=== PATIENT | male | born 1960 | race Caucasian/White ===

== ENCOUNTER → 2018-01-19 | Outpatient (CLI) | payer OTHER ==
[~2018-01-19] MED LIST: PERCOCET 5/3251 TAB PO
== END | disposition home or self-care (01) ==
LOC: NUCLEAR 13:55
DX: I20.0 Unstable angina (principal); I25.10 Atherosclerotic heart disease of native coronary artery without angina pectoris; E78.2 Mixed hyperlipidemia
CPT/HCPCS: 78452; 93017; A9500

== ENCOUNTER 2025-05-21 12:45 | Inpatient (IN) | payer OTHER ==
[~2025-05-21] VITALS: Ht 177.8 cm; Wt 86.2 kg
[2025-05-21 12:22] LABS: URINE APPEARANCE Clear; URINE BILIRRUBIN Negative (NEGATIVE); URINE BLOOD Small; URINE COLOR Yellow; URINE GLUCOSE Negative (NEGATIVE); URINE KETONE Negative (NEGATIVE); URINE LEUKOCYTE Negative; URINE NITRATE Negative; URINE PROTEIN Negative (NEGATIVE); URINE UROBILINOGEN 0.2 E.U./dl
[2025-05-21 12:27] LABS: BASO % 0.5 % (0.1-1.2); EOS # 0.10 (0.04-0.54); EOS % 1.7 % (0.7-7.0); LYMPH # 1.56 (1.18-3.74); LYMPH % 26.0 % (19.3-53.1); MEAN PLATELET VOLUME 11.10 fl (9.4-12.4); MONO # 0.57 (0.24-0.82); MONO % 9.5 % (4.7-12.5); NEUT # 3.73 (1.56-6.13); NEUT % 62.1 % (34.0-71.1); RED CELL DISTRIBUTION WIDTH 12.0 % (11.6-14.4)
[2025-05-21 12:42] LABS: INR 1.02
[2025-05-21 12:53] VITALS: BP 126/86
[2025-05-21] MEDS ORDERED: COZAAR25 MG PO (13:00)
[2025-05-21 13:07] LABS: URINE BACTERIA SOME; URINE EPITHELIAL CELLS 0-4 /HPF; URINE RBC 0-3 /HPF; URINE WBC 0-2 /hpf
[2025-05-21 13:13] LABS: ALT/SGPT 29.0 U/L (12-78); AST/SGOT 15.0 U/L (15-37); BILIRUBIN TOTAL 0.57 mg/dL (0.3-1.2); BUN CREA RATIO 21.0 (7.0-25.0); CREATININE SERUM 0.86 mg/dL (0.70-1.30); GFR 89.53; GLOBULINA 3.2 G/DL (2.4-3.5); GLUCOSE FASTING 93.0 mg/dL (65-100); OSMOLALITY SERUM 288.0 MOSM/KG (275-295)
[2025-05-21] MEDS ORDERED: LOSARTAN-HCTZ1 EAC1 PO (14:10)
[2025-05-21] MEDS ORDERED: TAMS0.4C PO (14:11)
[2025-05-28] MEDS ORDERED: CEFTRIAXONE SODIUM 2,000 MG VIAL IV ONE (10:15)
[2025-05-28] MEDS ORDERED: METRONIDAZOLE/SODIUM CHLORIDE 500 MG/100 ML PIGGYBACK IV ONE ×2 (10:30)
[2025-05-28] MEDS ORDERED: MORPHINE SULFATE 4 MG/ML VIAL IV ONE ×2 (12:00→13:00)
[2025-05-28] MEDS ORDERED: SUGAMMADEX SODIUM 200 MG/2 ML VIAL IV ONE (12:00)
[2025-05-28] MEDS ORDERED: ONDANSETRON HCL 2 MG/ML VIAL IV ONE (12:40)
[2025-05-28] MEDS ORDERED: OxyCODONE HCL 5 MG TABLET (ROXICODONE) PO PRN (12:45)
[2025-05-28] MEDS ORDERED: 0.9 % SODIUM CHLORIDE 1,000 ML IV SCH (12:45)
[2025-05-28] MEDS ORDERED: MORPHINE SULFATE 4 MG/ML CARTRIDGE IV PRN (12:45)
[2025-05-28] MEDS ORDERED: ONDANSETRON HCL 2 MG/ML VIAL IV PRN (12:45)
[2025-05-28] MEDS ORDERED: HYOSCYAMINE SULFATE 0.125 MG TAB.SUBL SL SCH (13:00)
[2025-05-28 13:35] LABS: BASO % 0.1 % (0.1-1.2); EOS # 0.02 (0.04-0.54); EOS % 0.1 % (0.7-7.0); LYMPH # 1.55 (1.18-3.74); LYMPH % 8.7 % (19.3-53.1); MEAN PLATELET VOLUME 11.40 fl (9.4-12.4); MONO # 0.79 (0.24-0.82); MONO % 4.5 % (4.7-12.5); NEUT # 15.29 (1.56-6.13); NEUT % 86.2 % (34.0-71.1); RED CELL DISTRIBUTION WIDTH 12.1 % (11.6-14.4)
[2025-05-28] MEDS ORDERED: ACETAMINOPHEN 500 MG GEL..CAP PO SCH (14:00)
[2025-05-28] MEDS ORDERED: POLYETHYLENE GLYCOL 3350 17 GM BLIST.PACK PO SCH (17:00)
[2025-05-28] MEDS ORDERED: GABAPENTIN 300 MG CAPSULE PO SCH (17:00)
[2025-05-28] MEDS ORDERED: METOCLOPRAMIDE HCL 5 MG/ML VIAL IV SCH (17:00)
[2025-05-28 17:50] VITALS: BP 137/81; O2SAT 95
[2025-05-28] MEDS ORDERED: CELECOXIB 200 MG CAPSULE PO SCH (21:00)
[2025-05-28] MEDS ORDERED: FAMOTIDINE/PF 20 MG/2 ML VIAL IV PUSH SCH (21:00)
[2025-05-29 01:33] VITALS: BP 136/78; O2SAT 100
[2025-05-29 08:00] VITALS: BP 119/74; O2SAT 96
[2025-05-29 08:23] LABS: BASO % 0.2 % (0.1-1.2); EOS # 0.05 (0.04-0.54); EOS % 0.4 % (0.7-7.0); LYMPH # 1.84 (1.18-3.74); LYMPH % 15.2 % (19.3-53.1); MEAN PLATELET VOLUME 11.90 fl (9.4-12.4); MONO # 1.32 (0.24-0.82); MONO % 10.9 % (4.7-12.5); NEUT # 8.79 (1.56-6.13); NEUT % 73.0 % (34.0-71.1); RED CELL DISTRIBUTION WIDTH 11.9 % (11.6-14.4)
[2025-05-29] MEDS ORDERED: LACTOBACILLUS ACIDOPHILUS 1 CAP CAP PO SCH (09:00)
[2025-05-29 09:08] LABS: BUN CREA RATIO 13.0 (7.0-25.0); CREATININE SERUM 0.78 mg/dL (0.70-1.30); GFR 100.21; GLUCOSE FASTING 103.0 mg/dL (65-100); OSMOLALITY SERUM 284.0 MOSM/KG (275-295)
[2025-05-29] MEDS ORDERED: ENOXAPARIN SODIUM 40 MG/0.4 ML SYRINGE SUBCUTANEO SCH (17:00)
[2025-05-29 17:27] VITALS: BP 101/64; O2SAT 98
[2025-05-30 02:27] VITALS: BP 111/70; O2SAT 98
[2025-05-30 08:00] VITALS: BP 123/79; O2SAT 97
[2025-05-30] MEDS ORDERED: ENOXAPARIN SODIUM 40 MG/0.4 ML SYRINGE SUBCUTANEO SCH (09:00)
[2025-05-30] MEDS ORDERED: METOCLOPRAMIDE HCL 10 MG TABLET PO SCH (17:00)
[2025-05-30] MEDS ORDERED: LEVSIN/SL0.125 MG SL (17:11)
[2025-05-30] MEDS ORDERED: CELECOXIB200 MG PO (17:11)
[2025-05-30] MEDS ORDERED: INTESTINEX680 M1 PO (17:11)
== END 2025-05-30 17:47 | DRG 330 ==
LOC: O/R 05-28 06:25 → SURH 05-28 07:00 → O/R 05-28 09:47 → SURH 05-28 12:27
PROVIDERS: ADMIT Surgery; ATTEND Surgery
PROC: 0DBP4ZZ Excision of Rectum, Percutaneous Endoscopic Approach (ICD-10-PCS; 2025-05-28)
PROC: 0DNW4ZZ Release Peritoneum, Percutaneous Endoscopic Approach (ICD-10-PCS; 2025-05-28)
PROC: 0DJD8ZZ Inspection of Lower Intestinal Tract, Via Natural or Artificial Opening Endoscopic (ICD-10-PCS; 2025-05-28)
PROC: 8E0W4CZ Robotic Assisted Procedure of Trunk Region, Percutaneous Endoscopic Approach (ICD-10-PCS; 2025-05-28)
PROC: 0DTN4ZZ Resection of Sigmoid Colon, Percutaneous Endoscopic Approach (ICD-10-PCS; principal; 2025-05-28 07:00)
DX: K57.32 Diverticulitis of large intestine without perforation or abscess without bleeding (principal); K62.5 Hemorrhage of anus and rectum; K64.2 Third degree hemorrhoids
CPT/HCPCS: 44207; 44213; 45330; 44180; S2900

== ENCOUNTER 2025-06-12 11:34 | Emergency (ER) | payer OTHER ==
[~2025-06-12] VITALS: Ht 177.8 cm; Wt 86.2 kg
[~2025-06-12 11:34] MED LIST changes: +CELECOXIB200 MG PO; +COZAAR25 MG PO; +INTESTINEX680 M1 PO; +LEVSIN/SL0.125 MG SL; +LOSARTAN-HCTZ1 EAC1 PO; +TAMS0.4C PO
[2025-06-12 12:02] VITALS: BP 110/69; O2SAT 99
[2025-06-12] MEDS ORDERED: 0.9 % SODIUM CHLORIDE 1,000 ML IV ONE (12:30)
[2025-06-12] MEDS ORDERED: KETOROLAC TROMETHAMINE 30 MG VIAL IV ONE (12:30)
[2025-06-12] MEDS ORDERED: KETOROLAC TROMETHAMINE 30 MG VIAL ONE (13:16)
[2025-06-12 13:43] LABS: BASO % 0.5 % (0.1-1.2); EOS # 0.17 (0.04-0.54); EOS % 1.9 % (0.7-7.0); LYMPH # 1.86 (1.18-3.74); LYMPH % 21.2 % (19.3-53.1); MEAN PLATELET VOLUME 10.40 fl (9.4-12.4); MONO # 0.73 (0.24-0.82); MONO % 8.3 % (4.7-12.5); NEUT # 5.93 (1.56-6.13); NEUT % 67.6 % (34.0-71.1); RED CELL DISTRIBUTION WIDTH 12.1 % (11.6-14.4)
[2025-06-12] MEDS ORDERED: DIATRIZOATE MEGLUMINE, SODIUM 30 ML BOTTLE ONE (14:06)
[2025-06-12 14:07] LABS: URINE APPEARANCE Clear; URINE BILIRRUBIN Negative (NEGATIVE); URINE BLOOD Trace; URINE COLOR Dark Yellow; URINE GLUCOSE Negative (NEGATIVE); URINE KETONE Trace (NEGATIVE); URINE LEUKOCYTE Negative; URINE NITRATE Negative; URINE PROTEIN Negative (NEGATIVE); URINE UROBILINOGEN 0.2 E.U./dl
[2025-06-12 14:11] LABS: URINE BACTERIA 20.4 uL (0.0-1933); URINE EPITHELIAL CELLS 1.5 uL (0.0-38.8); URINE RBC 141.8 uL (0.0-20.8)
[2025-06-12 14:13] LABS: ALT/SGPT 34.0 U/L (12-78); AST/SGOT 11.0 U/L (15-37); BILIRUBIN TOTAL 0.59 mg/dL (0.3-1.2); BUN CREA RATIO 19.0 (7.0-25.0); CREATININE SERUM 1.07 mg/dL (0.70-1.30); GFR 69.58; GLOBULINA 4.1 G/DL (2.4-3.5); GLUCOSE FASTING 96.0 mg/dL (65-100); OSMOLALITY SERUM 287.0 MOSM/KG (275-295)
[2025-06-12] MEDS ORDERED: DIATRIZOATE MEGLUMINE, SODIUM 30 ML BOTTLE PO ONE (14:15)
[2025-06-12 14:18] LABS: INR 1.05
[2025-06-12 14:53] LABS: URINE CAST 0.14 uL (0.0-1.40); URINE WBC 1.0 uL (0.0-23.2)
[2025-06-12] MEDS ORDERED: PIPERACILLIN/TAZOBACTAM SODIUM 3.375 GM VIAL IV STA (16:52)
[2025-06-12] MEDS ORDERED: PIPERACILLIN/TAZOBACTAM SODIUM 3.375 GM VIAL IV ONE (17:18)
== END 2025-06-12 19:04 | disposition home or self-care (01) ==
LOC: ER 11:34
PROVIDERS: General Practice
DX: R10.84 Generalized abdominal pain (principal); K62.89 Other specified diseases of anus and rectum; N28.1 Cyst of kidney, acquired; N40.0 Benign prostatic hyperplasia without lower urinary tract symptoms; I10 Essential (primary) hypertension